=== PATIENT | male | born 1980 | race Caucasian/White ===

== ENCOUNTER 2017-02-26 03:13 | Emergency (ER) | payer OTHER ==
[2017-02-26 03:31] VITALS: TEMP 98.5; O2SAT 98
[2017-02-26] MEDS ORDERED: KETOROLAC TROMETHAMINE INJ 30 MG/ML VIAL IV ONE (03:40)
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
[2017-02-26] MEDS ORDERED: SODIUM CHLORIDE 0.9% 1000ML 1,000 ML IVS ONE (03:47)
[2017-02-26] MEDS ORDERED: diazePAM 2 MG TAB PO ONE (03:48)
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
[2017-02-26 08:15] VITALS: BP 121/67
== END 2017-02-26 07:52 | disposition home or self-care (01) ==
LOC: ER 03:13
DX: T14.8XXA Other injury of unspecified body region, initial encounter (principal); F14.10 Cocaine abuse, uncomplicated; F15.10 Other stimulant abuse, uncomplicated; F12.10 Cannabis abuse, uncomplicated; F10.120 Alcohol abuse with intoxication, uncomplicated; V48.6XXA Car passenger injured in noncollision transport accident in traffic accident, initial encounter; Y92.410 Unspecified street and highway as the place of occurrence of the external cause
CPT/HCPCS: 36415; 71020; 72100; 72125; 80053; 80307; 80320; 81001; 82150; 83690; 85025; 85610; 85730; J1885; J7030